=== PATIENT | female | born 1970 | race Caucasian/White ===

== ENCOUNTER 2017-04-08 13:58 | Emergency (ER) | payer OTHER ==
[2017-04-08 14:29] LABS: BASO % 0.5 % (0.1-1.2); EOS # 0.2 10_X3_uL (0.0-0.4); EOS % 2.7 % (0.7-5.8); GRAN # 4.7 10_X3_uL (1.6-6.1); GRAN % 55.7 % (34.0-71.1); HEMATOCRIT 42.6 % (34-45); HEMOGLOBIN 14.2 g/dL (11.2-15.7); LYMPH # 2.7 10_X3_uL (1.2-3.7); LYMPH % 32.1 % (19.3-51.7); MEAN CORPUSCULAR HEMOGLOBIN 31.6 pg (27.0-33.0); MEAN CORPUSCULAR HGB CONC 33.3 g/dL (32.0-36.0); MEAN CORPUSCULAR VOLUME 94.9 fL (79-95); MEAN PLATELET VOLUME 10.5 fl (7.5-11.5); MONO # 0.8 10_X3_uL (0.2-0.9); PLATELET COUNT 286 x10_3/uL (182-369); RED BLOOD COUNT 4.49 x10_6/uL (3.9-5.2); WHITE BLOOD COUNT 8.4 x10_3/uL (4.0-10.0)
== END 2017-04-08 15:57 | disposition home or self-care (01) ==
LOC: ER 13:58
PROVIDERS: General Practice
DX: M54.9 Dorsalgia, unspecified (principal); G89.29 Other chronic pain; M51.36 Other intervertebral disc degeneration, lumbar region; M51.34 Other intervertebral disc degeneration, thoracic region; Z79.1 Long term (current) use of non-steroidal anti-inflammatories (NSAID); Z79.899 Other long term (current) drug therapy
CPT/HCPCS: 36415; 72128; 72131; 85025; 99283-25